=== PATIENT | male | born 1985 ===

== ENCOUNTER 2017-02-13 12:00 | Emergency (ER) | payer OTHER ==
[2017-02-13 12:08] VITALS: BMI 29.8
[2017-02-13] MEDS ORDERED: Sodium Chloride 0.9% 500 ML IV ONE (12:46)
[2017-02-13 12:51] LABS: RBC URINE 38 /hpf (0-3); URINE BACTERIA RARE (<OCC); URINE BILIRUBIN NEGATIVE (NEGATIVE); URINE BLOOD 3+ (NEGATIVE); URINE COLOR Straw (YELLOW); URINE GLUCOSE (UA) NORMAL (Normal); URINE KETONE NEGATIVE (NEGATIVE); URINE LEUKOCYTE ESTERASE NEG Leu/uL (Negative); URINE PROTEIN NEGATIVE (NEGATIVE); URINE UROBILINOGEN NORMAL mg/dL (0.2-1.0); WBC URINE 1 /hpf (0-5)
[2017-02-13 12:55] LABS: BASO % 0.7 % (0.0-2.0); EOS # 0.1 K/uL (0.0-0.7); EOS % 1.5 % (0.0-4.0); HEMATOCRIT 40.7 % (35.0-51.0); LYMPH # 2.2 K/uL (1.0-4.3); MEAN CELL VOLUME 85.1 fL (80.0-94.0); MEAN CORPUSCULAR HEMOGLOBIN 28.4 pg (27.0-31.0); MEAN CORPUSCULAR HGB CONC 33.4 g/dL (33.0-37.0); MEAN PLATELET VOLUME 8.1 fL (7.2-11.7); MONO # 0.5 K/uL (0.0-0.8); MONO % 6.5 % (0.0-10.0); RED CELL DISTRIBUTION WIDTH 13.9 % (11.5-14.5); WHITE BLOOD COUNT 7.2 K/uL (4.8-10.8)
[2017-02-13 13:05] LABS: CHLORIDE 102 mmol/L (98-107); POTASSIUM 3.5 mmol/L (3.6-5.2); SODIUM 136 mmol/L (132-148)
[2017-02-13 13:07] LABS: ALB/GLOB RATIO 1.4 (1.0-2.1); ALKALINE PHOSPHATASE 100 U/L (38-126); AST/SGOT 19 U/L (17-59); BILIRUBIN,TOTAL 0.6 mg/dL (0.2-1.3); CARBON DIOXIDE 22 mmol/L (22-30); GFR AFRICAN-AMERICAN > 60; TOTAL PROTEIN 6.9 g/dL (6.3-8.3)
[2017-02-13 13:08] LABS: ALT/SGPT 26 U/L (21-72); BLOOD UREA NITROGEN 14 mg/dL (9-20); CALCIUM 8.2 mg/dl (8.6-10.4); GLUCOSE,RANDOM 94 mg/dL (75-110)
[2017-02-13] MEDS ORDERED: Sodium Chloride 0.9% 1,000 ML ONE (13:10)
[2017-02-13 13:37] VITALS: RESP 18
--- NOTE | 2017-02-13 14:22 | CT ---
PROCEDURE: CT Abdomen and Pelvis without intravenous contrast HISTORY: R flank pain, hx of kidney stone COMPARISON: None. TECHNIQUE: Technique. Contrast Dose: Radiation dose: Total exam DLP = 564 mGy-cm. This CT exam was performed using one or more of the following dose reduction techniques: Automated exposure control, adjustment of the mA and/or kV according to patient size, and/or use of iterative reconstruction technique. FINDINGS: LOWER THORAX: Unremarkable. LIVER: Unremarkable. No gross lesion or ductal dilatation. GALLBLADDER AND BILE DUCTS: Unremarkable. PANCREAS: Unremarkable. No gross lesion or ductal dilatation. SPLEEN: Unremarkable. ADRENALS: Unremarkable. No mass. KIDNEYS AND URETERS: 5 millimeter obstructive calculus in the right mid to distal ureter with associated mild to moderate right hydronephrosis. VASCULATURE: Unremarkable. No aortic aneurysm. BOWEL: Unremarkable. No obstruction. No gross mural thickening. APPENDIX: Unremarkable. Normal appendix. PERITONEUM: Unremarkable. No free fluid. No free air. LYMPH NODES: Unremarkable. No enlarged lymph nodes. BLADDER: Unremarkable. REPRODUCTIVE: Unremarkable. BONES: No acute fracture. OTHER FINDINGS: None. IMPRESSION: 5 millimeter obstructive calculus in the right mid to distal ureter with associated mild to moderate right hydronephrosis.
--- NOTE | 2017-02-13 15:06 | C.PDOC ---
Time Seen by Provider: 02/13/17 12:22 Chief Complaint (Nursing): Male Genitourinary Past Medical History Vital Signs: Last Vital Signs Temp 97.7 F 02/13/17 14:20 Pulse 89 02/13/17 14:20 Resp 18 02/13/17 14:20 BP 126/82 02/13/17 14:20 Pulse Ox 98 02/13/17 14:20 - Medical History PMH: Kidney Stones, Chronic Kidney Disease - Social History Hx Alcohol Use: Yes Hx Substance Use: No - Immunization History Hx Tetanus Toxoid Vaccination: No Hx Influenza Vaccination: No Hx Pneumococcal Vaccination: No ED Course And Treatment - Laboratory Results Result Diagrams: 02/13/17 12:51 02/13/17 12:51 O2 Sat by Pulse Oximetry: 98
--- NOTE | 2017-02-13 15:08 | C.PDOC ---
History Of Present Illness 31 y/o male pmhx kidney stones presents to the emergency department with complains of right flank pain radiating to RLQ for the past several days. Pt was seen at clinic several days ago with outpatient US showing kidney stone. Pt reports pain is worse today and now has associated nausea and vomiting. Denies fever, chills, hematuria, diarrhea, constipation or any other complaints. Time Seen by Provider: 02/13/17 12:22 Chief Complaint (Nursing): Male Genitourinary History Per: Patient History/Exam Limitations: no limitations Onset/Duration Of Symptoms: Days Current Symptoms Are (Timing): Worse Severity: Moderate Quality Of Discomfort: "Pain" Associated Symptoms: denies: Fever, Chills, Nausea, Vomiting, Diarrhea Alleviating Factors: None Recent travel outside of the [place]: No Past Medical History Reviewed: Historical Data, Nursing Documentation, Vital Signs Vital Signs: Last Vital Signs Temp 97.8 F 02/13/17 15:28 Pulse 60 02/13/17 15:28 Resp 18 02/13/17 15:28 BP 128/75 02/13/17 15:28 Pulse Ox 99 02/13/17 15:28 - Medical History PMH: Kidney Stones, Chronic Kidney Disease Family History: States: Unknown Family Hx - Social History Hx Alcohol Use: Yes Hx Substance Use: No - Immunization History Hx Tetanus Toxoid Vaccination: No Hx Influenza Vaccination: No Hx Pneumococcal Vaccination: No Review Of Systems Except As Marked, All Systems Reviewed And Found Negative. Constitutional: Negative for: Fever, Chills Gastrointestinal: Positive for: Nausea, Vomiting, Abdominal Pain. Negative for : Diarrhea, Constipation Genitourinary: Negative for: Dysuria, Hematuria Musculoskeletal: Positive for: Other (right flank pain) Physical Exam - Physical Exam Appears: Non-toxic, No Acute Distress Skin: Warm, Dry, No Rash Head: Atraumatic, Normacephalic Chest: Symmetrical Cardiovascular: Rhythm Regular, No Murmur Respiratory: Normal Breath Sounds, No Rales, No Rhonchi, No Wheezing Gastrointestinal/Abdominal: Soft, Tenderness (minimal RLQ), No Guarding, No Rebound Back: No CVA Tenderness Extremity: Normal ROM Extremity: Bilateral: Atraumatic Neurological/Psych: Oriented x3, Normal Speech ED Course And Treatment - Laboratory Results Result Diagrams: 02/13/17 12:51 02/13/17 12:51 O2 Sat by Pulse Oximetry: 98 (room air) Pulse Ox Interpretation: Normal - CT Scan/US CT abdomen Other Rad Studies (CT/US): Read By Radiologist, Radiology Report Reviewed CT/US Interpretation: Accession No. : [id number]. Patient Name / ID : SULY OVIEDO / [id number]. Exam Date : 02/13/2017 13:24:29 ( Approved ). Study Comment : Sex / Age : M / 31Y. Creator : Ronni Gao MD. Dictator : Ronni Gao MD. Manager Inventory Management : Programmer Analyst Consultant : Ronni Gao MD. Approver2 : Report Date : 02/13/2017 14:20:45. My Comment : . PROCEDURE: CT Abdomen and Pelvis without intravenous contrast. HISTORY: R flank pain, hx of kidney stone. COMPARISON: None. TECHNIQUE: Technique. Contrast Dose: Radiation dose: Total exam DLP = 564 mGy-cm. This CT exam was performed using one or more of the following dose reduction techniques: Automated exposure control, adjustment of the mA and/or kV according to patient size, and/or use of iterative reconstruction technique. FINDINGS: LOWER THORAX : Unremarkable. LIVER: Unremarkable. No gross lesion or ductal dilatation. GALLBLADDER AND BILE DUCTS: Unremarkable. PANCREAS: Unremarkable. No gross lesion or ductal dilatation. SPLEEN: Unremarkable. ADRENALS: Unremarkable. No mass. KIDNEYS AND URETERS: 5 millimeter obstructive calculus in the right mid to distal ureter with associated mild to moderate right hydronephrosis. VASCULATURE: Unremarkable. No aortic aneurysm. BOWEL: Unremarkable. No obstruction. No gross mural thickening. APPENDIX: Unremarkable. Normal appendix. PERITONEUM: Unremarkable. No free fluid. No free air. LYMPH NODES: Unremarkable. No enlarged lymph nodes. BLADDER: Unremarkable. REPRODUCTIVE : Unremarkable. BONES: No acute fracture. OTHER FINDINGS: None. IMPRESSION : 5 millimeter obstructive calculus in the right mid to distal ureter with associated mild to moderate right hydronephrosis. Progress Note: Plan: CT abd, labs, UA, IV fluids, morphine, toradol, zofran,. On re-exam, the patient reports improvement of symptoms. Ambulatory in the ED with steady gait. Lungs are CTA, heart is RRR, abdomen is soft, non-tender and patient is tolerating PO well. Pt states has an appointment with urologist next week, instructed patient to follow up as scheduled. Disposition - Disposition Referrals: Lucio Gilbert Jr., MD [Staff Provider] - Disposition: HOME/ ROUTINE Disposition Time: 15:00 Condition: FAIR Additional Instructions: Follow up with the medical doctor within 1-2 days without fail. Return if worsened. Prescriptions: Ciprofloxacin [Cipro] 1 tab PO BID #14 tab Naproxen [Naprosyn] 500 mg PO BID #20 tab oxyCODONE/Acetaminophen [Percocet 5/325 mg Tab] 1 tab PO QID PRN #20 tab PRN Reason: Pain Tamsulosin HCl [Flomax] 0.4 mg PO DAILY #10 cap.er.24h Instructions: Renal Colic (ED) Print Language: TURKMEN - Clinical Impression Clinical Impression: Nephrolithiasis, Hydronephrosis - PA / SUPERVISOR PIPELINE / Resident Statement MD/DO has reviewed & agrees with the documentation as recorded. - Scribe Statement The provider has reviewed the documentation as recorded by the Anoop Sanon All medical record entries made by the Anoop were at my direction and personally dictated by me. I have reviewed the chart and agree that the record accurately reflects my personal performance of the history, physical exam, medical decision making, and the department course for this patient. I have also personally directed, reviewed, and agree with the discharge instructions and disposition.
[2017-02-13 15:29] VITALS: BP 128/75; PULSE 60; TEMP 97.8
[2017-02-13 16:37] VITALS: O2SAT 98
== END 2017-02-13 15:27 | disposition home or self-care (01) ==
LOC: C.ER 12:00
DX: N13.2 Hydronephrosis with renal and ureteral calculous obstruction (principal); Z87.442 Personal history of urinary calculi
CPT/HCPCS: 74176; 80053; 81001; 83690; 85025; 87086; 96361; 96374; 96375; 99285; J1885; J2270; J2405; J7040

== ENCOUNTER 2017-07-06 21:48 | Emergency (ER) | payer SELFPAY ==
[2017-07-06 21:48] VITALS: BMI 29.8
[2017-07-06 21:57] VITALS: BP 128/87; PULSE 76; RESP 16; TEMP 98; O2SAT 98
--- NOTE | 2017-07-06 23:12 | C.PDOC ---
History Of Present Illness 32 year old male who presents to the ER with a complaint of sores to the bottom of his right foot for the past 2 days. Patient states he was peeling dry skin from his sole and accidentally cut himself. Patient reports it now appears infected which prompted ER visit. Denies fever, weakness, or numbness. Time Seen by Provider: 07/06/17 22:16 Chief Complaint (Nursing): Abnormal Skin Integrity History Per: Patient History/Exam Limitations: no limitations Onset/Duration Of Symptoms: Days Current Symptoms Are (Timing): Still Present Location Of Injury: Right: Foot Quality Of Symptoms: Other (Cut) Recent travel outside of the [place]: No Past Medical History Reviewed: Historical Data, Nursing Documentation, Vital Signs Vital Signs: Last Vital Signs Temp 98.0 F 07/06/17 21:53 Pulse 76 07/06/17 21:53 Resp 16 07/06/17 21:53 BP 128/87 07/06/17 21:53 Pulse Ox 98 07/07/17 00:53 - Medical History PMH: Kidney Stones, Chronic Kidney Disease Surgical History: No Surg Hx Family History: States: Unknown Family Hx - Social History Hx Alcohol Use: Yes Hx Substance Use: No - Immunization History Hx Tetanus Toxoid Vaccination: No Hx Influenza Vaccination: No Hx Pneumococcal Vaccination: No Review Of Systems Constitutional: Negative for: Fever Skin: Positive for: Other (Wound) Neurological: Negative for: Weakness, Numbness Physical Exam - Physical Exam Appears: Non-toxic, No Acute Distress Skin: Warm, Dry Head: Atraumatic, Normacephalic Extremity: Tenderness (Mild to right foot.), Other (Maceration between 3rd, 4th , and 5th toes of right foot. Erythema to dorsal aspect of right foot extending from toes. Dry, nonpurulent healing wound to plantar aspect of right foot.) Pulses: Left Dorsalis Pedis: Normal, Right Dorsalis Pedis: Normal Neurological/Psych: Oriented x3, Normal Speech, Normal Cognition, Normal Motor, Normal Sensation ED Course And Treatment O2 Sat by Pulse Oximetry: 98 (Room air) Pulse Ox Interpretation: Normal Progress Note: Patient is resting comfortably in the ER and is in no acute distress. Will discharge home with proper wound care instructions and advised to follow up with PMD in 1-2 days for further evaluation. Disposition Counseled Patient/Family Regarding: Diagnosis, Need For Followup, Rx Given - Disposition Disposition: HOME/ ROUTINE Disposition Time: 23:02 Condition: STABLE Additional Instructions: Please follow up with PMD Soak feet in warm soapy water Apply cream as directed Take meds as directed Return to ER if worse Prescriptions: Bacitracin Ointment [Bacitracin] 30 gm TOP BID #1 tube Cephalexin [cephalexin] 500 mg PO QID #28 cap Clotrimazole 1% Cream [Lotrimin 1%] 1 appl TP BID #1 tube Instructions: Tinea Pedis (ED), Cellulitis (ED) Forms: [employer] (Tuvaluan) Print Language: MACANESE - Clinical Impression Clinical Impression: Tinea pedis of right foot - Scribe Statement The provider has reviewed the documentation as recorded by the Scribchristopher Olmos All medical record entries made by the Scribchristopher were at my direction and personally dictated by me. I have reviewed the chart and agree that the record accurately reflects my personal performance of the history, physical exam, medical decision making, and the department course for this patient. I have also personally directed, reviewed, and agree with the discharge instructions and disposition.
== END 2017-07-06 23:20 | disposition home or self-care (01) ==
LOC: C.ER 21:48
DX: B35.3 Tinea pedis (principal); N18.9 Chronic kidney disease, unspecified; Z87.442 Personal history of urinary calculi

== ENCOUNTER 2017-08-06 22:36 | Emergency (ER) | payer SELFPAY ==
[2017-08-06 22:36] VITALS: BMI 29.8
[2017-08-06 23:12] VITALS: O2SAT 98
--- NOTE | 2017-08-06 23:31 | C.PDOC ---
History Of Present Illness 32 y/o male presents to the ED c/o redness to his right lower leg since this morning. The patient reports something bit him a few days ago and he paid it no mind. The patient denies swelling, fever, no drainage. Time Seen by Provider: 08/06/17 23:13 Chief Complaint (Nursing): Lower Extremity Problem/Injury History Per: Patient History/Exam Limitations: no limitations Onset/Duration Of Symptoms: Hrs Current Symptoms Are (Timing): Still Present Severity: Mild Recent travel outside of the [place]: No Additional History Per: Patient Past Medical History Reviewed: Historical Data, Nursing Documentation, Vital Signs Vital Signs: Last Vital Signs Temp 98.1 F 08/06/17 23:41 Pulse 83 08/06/17 23:41 Resp 20 08/06/17 23:41 BP 121/69 08/06/17 23:41 Pulse Ox 98 08/07/17 03:53 - Medical History PMH: Kidney Stones, Chronic Kidney Disease Family History: States: No Known Family Hx - Social History Hx Alcohol Use: Yes Hx Substance Use: No - Immunization History Hx Tetanus Toxoid Vaccination: No Hx Influenza Vaccination: No Hx Pneumococcal Vaccination: No Review Of Systems Except As Marked, All Systems Reviewed And Found Negative. Constitutional: Negative for: Fever Respiratory: Negative for: Cough, Shortness of Breath Musculoskeletal: Positive for: Leg Pain (erythema to the lower right leg) Skin: Negative for: Rash, Lesions, Bruising Physical Exam - Physical Exam Appears: Non-toxic, No Acute Distress Skin: Warm, Dry Head: Atraumatic, Normacephalic Eye(s): bilateral: Normal Inspection Oral Mucosa: Moist Neck: Supple Chest: Symmetrical Extremity: Normal ROM, No Calf Tenderness, Other (3x3 cm area of etheryma, mild swelling, and tenderness to the distal anterior right leg) Neurological/Psych: Oriented x3, Normal Speech Gait: Steady ED Course And Treatment O2 Sat by Pulse Oximetry: 98 (RA) Pulse Ox Interpretation: Normal Progress Note: The patient was given Keflex. The patient is comfortable. Upon reassessment, the patient is aferbile and has normal range of motion with the right leg. The patient is advised to have a 1-2 day follow up with the PMD for further evaluation. Disposition Counseled Patient/Family Regarding: Diagnosis, Need For Followup, Rx Given - Disposition Disposition: HOME/ ROUTINE Disposition Time: :30 Condition: STABLE Additional Instructions: Por favor, tome analgsicos segn sea necesario. dali antibiticos dos veces al da zac rafy semana. Emanuel un seguimiento con un mdico o clnica para recibir ms atencin Prescriptions: Cephalexin [cephalexin] 500 mg PO Q12 #14 cap Instructions: Cellulitis (DC) Forms: [employer] (Yi) Print Language: TUVALUAN - POA Present On Arrival: None - Clinical Impression Clinical Impression: Cellulitis of leg, right - PA / HAND FINISHER / Resident Statement MD/DO has examined the patient and agrees with the treatment plan. - Scribe Statement The provider has reviewed the documentation as recorded by the Scribchristopher Souza All medical record entries made by the Scribe were at my direction and personally dictated by me. I have reviewed the chart and agree that the record accurately reflects my personal performance of the history, physical exam, medical decision making, and the department course for this patient. I have also personally directed, reviewed, and agree with the discharge instructions and disposition.
[2017-08-06 23:42] VITALS: BP 121/69; PULSE 83; RESP 20; TEMP 98.1
== END 2017-08-06 23:48 | disposition home or self-care (01) ==
LOC: C.ER 22:36
DX: L03.115 Cellulitis of right lower limb (principal)

== ENCOUNTER 2018-01-12 15:34 | Emergency (ER) | payer OTHER ==
[2018-01-12 15:44] VITALS: BMI 27.4
[2018-01-12 15:49] VITALS: BP 125/71; RESP 18; O2SAT 98
[2018-01-12] MEDS ORDERED: Amoxicillin-Clav 875-125 mg Tab PO STA (16:20)
--- NOTE | 2018-01-12 16:24 | C.PDOC ---
History Of Present Illness 32 yo male w/o significant PMHx come in for evaluation of cold sx for past 2 days associated with high fever, bodyaches, headache, sore throat. Otherwise, pt denies lethargy, worse headache of life, drooling, dysphagia, dyspnea, SOB, dyspnea, CP, palpitation, wheezing, abd. pain, V/D, UTI sx, rash, denies recent travel or known sick contact. AT eth time of evaluation, pt is awake, not in any apparent distress. Time Seen by Provider: 01/12/18 15:51 Chief Complaint (Nursing): ENT Problem History Per: Patient Past Medical History Reviewed: Historical Data, Nursing Documentation, Vital Signs Vital Signs: Last Vital Signs Temp 99 F 01/12/18 16:38 Pulse 85 01/12/18 16:38 Resp 18 01/12/18 16:38 BP 125/71 01/12/18 15:44 Pulse Ox 98 01/12/18 16:39 - Medical History PMH: Kidney Stones Family History: States: Unknown Family Hx - Social History Hx Alcohol Use: Yes Hx Substance Use: No - Immunization History Hx Tetanus Toxoid Vaccination: No Hx Influenza Vaccination: No Hx Pneumococcal Vaccination: No Review Of Systems Except As Marked, All Systems Reviewed And Found Negative. Constitutional: Positive for: Fever, Malaise ENT: Positive for: Nose Congestion, Throat Pain. Negative for: Ear Pain, Ear Discharge, Nose Discharge Cardiovascular: Negative for: Chest Pain Respiratory: Negative for: Cough, Shortness of Breath, Wheezing Gastrointestinal: Negative for: Nausea, Vomiting, Abdominal Pain, Diarrhea Genitourinary: Negative for: Dysuria Musculoskeletal: Negative for: Neck Pain, Back Pain Neurological: Negative for: Weakness, Numbness, Altered Mental Status Physical Exam - Physical Exam Appears: Well, Non-toxic, No Acute Distress Skin: Normal Color, Warm, Dry, No Rash Head: Normacephalic Eye(s): bilateral: PERRL Ear(s): Bilateral: Normal Nose: No Flaring, No Discharge Oral Mucosa: Moist, No Drooling Tongue: Normal Appearing Lips: Normal Appearing Throat: Erythema (mod B/L), No Exudate, No Drooling Neck: Trachea Midline, Supple Lymphatic: Adenopathy (Right anterior cervical) Cardiovascular: Rhythm Regular Respiratory: No Decreased Breath Sounds, No Accessory Muscle Use, No Stridor, No Wheezing Gastrointestinal/Abdominal: Soft, No Tenderness, No Distention, No Guarding Back: No CVA Tenderness Extremity: Normal ROM, No Deformity, No Swelling Neurological/Psych: Oriented x3, Normal Speech ED Course And Treatment O2 Sat by Pulse Oximetry: 98 Pulse Ox Interpretation: Normal Progress Note: On re-evaluation, pt is awake, comfortable, not in any apparent distress. fever improved, hemodynamicaly stable. PulseOx 98% RA. Neck: SUpple , (-) meningeal sign. ENT: exam c/w pharyngitis. Uvula midline, no edema. Lungs: CTA B/L, BS equal B/L. ABd: benign. Neurologicaly intact. Pt advised on course of ds. ref. to f/u with PMD in 2 days for re-eval. return to ED if any worsening or new changes. Disposition Counseled Patient/Family Regarding: Diagnosis, Need For Followup, Rx Given - Disposition Referrals: [facility] [Outside] Disposition: HOME/ ROUTINE Disposition Time: 16:21 Condition: STABLE Additional Instructions: Encourage fluids Take medication as prescribed Follow up with PMD ion 2-3 days for re-evaluation. return to ED if any worsening or new changes. Prescriptions: Amoxicillin/Clavulanate [Augmentin 875 MG-125 MG] 1 tab PO BID #14 tab Ibuprofen [Motrin Tab] 600 mg PO Q6 #20 tab Oseltamivir Phosphate [Tamiflu] 75 mg PO BID #10 capsule Instructions: Sore Throat in Adults, Flu, Adult (DC) Forms: [employer] (Czech) Print Language: ARMENIAN - Clinical Impression Clinical Impression: Pharyngitis
[2018-01-12] MEDS ORDERED: Amoxicillin-Clav 875-125 mg Tab PO ONE (16:26)
[2018-01-12 16:38] VITALS: PULSE 85; TEMP 99
== END 2018-01-12 16:46 | disposition home or self-care (01) ==
LOC: C.ER 15:34
DX: J02.9 Acute pharyngitis, unspecified (principal)